=== PATIENT | female | born 1930 | race Caucasian/White ===

== ENCOUNTER → 2018-02-20 11:29 | Outpatient (CLI) | payer MEDICARE, BC ==
--- NOTE | ~2018-02-20 | ST ---
PATIENT:PURNIMA DOWD MEDICAL RECORD: [id number] SEX: F LOCATION:[facility] ORDER #: ADMISSION DATE: 02/20/18 AGE OF PATIENT: 87 REFERRING PHYSICIAN: INTERPRETING PHYSICIAN: LUDWIG MILIAN MD DATE OF SERVICE: 02/20/2018 PROCEDURE: Nuclear stress test. INDICATION: Chest pain, shortness of breath, hypertension. The patient was exercised on standard Lexiscan protocol with 32 mCi of sestamibi injected at peak stress, 11 mCi were injected previously for rest images. FINDINGS: Gated SPECT reveals preserved ejection fraction at 85% with good wall motion and thickening and brightening throughout all segments. SPECT imaging Cardiolite was used as myocardial fusion agent. There is homogeneous uptake throughout all segments at rest and stress with no evidence of inducible ischemia or previous infarction. OVERALL IMPRESSION: 1. This is a normal nuclear stress test with no evidence of inducible ischemia or previous infarction. 2. Gated SPECT reveals a preserved ejection fraction at 85%. In this patient with ongoing symptomatology, the current scan does not suggest the presence of hemodynamically significant coronary artery disease. Evaluate noncardiac etiology of chest pain. TRANSINT:[id number] Voice Confirmation ID: [id number] DOCUMENT ID: [id number] LUDWIG MILIAN MD at 1228 CC: ABHIJEET HEMPHILL MD [id number] DICTATION DATE: 02/21/18 1238 INSPECTING SUPERVISOR: 02/22/18 0654 [facility] CLI 02/20/18 [place] [id number] [place] [id number]
== END | disposition home or self-care (01) ==
LOC: D.HCCARDIO 11:29
DX: R06.02 Shortness of breath (principal)

== ENCOUNTER 2018-04-30 08:43 | Outpatient (CLI) | payer MEDICARE, BC ==
[~2018-04-30] VITALS: Ht 154.9 cm; Wt 48.2 kg
--- NOTE | ~2018-04-30 | HEMODYNAMI ---
PATIENT:PURNIMA DOWD MEDICAL RECORD: [id number] : 34 LOCATION:[facility] ADMISSION DATE: 04/30/18 Generatedon:04/30/201810:48 Patient name: PURNIMA DOWD Patient #: [id number] SSN: : [id number] Date of study: 04/30/2018 Page: Of Hemodynamic Procedure Report Patient Data Patient Demographics Procedure consent was obtained First Name: PURNIMA Gender: Female Last Name: NILE : 1930 [facility] Initial: ZHANNA Age: 87 year(s) Patient #: [id number] Race: Unknown Additional ID: [id number] Contact details [address]: [address] [place] [address] State: [place] City: [place] Zip code: [address] Past Medical History Allergies Allergen Reaction Date Comments Reported Penicillins 04/30/2018 Other allergy 04/30/2018 PEPCID,PHENERGAN, BENICAR, ANZEMET, LISINOPRIL Admission Admission Data Admission Date: 04/30/2018 Admission Time: 8:43 Procedure Procedure Types Cath Procedure Diagnostic Procedure C [facility] w/Coronaries Procedure Description Procedure Date Procedure Date: 04/30/2018 Procedure Start Time: 10:38 Procedure End Time: 10:46 Procedure Staff Name Function Gordon Andre MD Performing Physician Taisha Cardenas RT Monitor Josué Pitts RT Ui Lead Developer Roya Yen RT Scrub Sonia Thurston RT Scrub Procedure Data Cath Procedure Fluoroscopy Diagnostic fluoroscopy Total fluoroscopy Time: 1.1 time: 1.1 min min Diagnostic fluoroscopy Total fluoroscopy dose: 144 dose: 144 mGy mGy Contrast Material Contrast Material Type Amount (ml) Isovue 300 56 Entry Location Entry Primary Successful Side Size Upsize Upsize Entry Closure Regalado ccessful Closure Location (Fr) 1 (Fr) 2 (Fr) Remarks Device Remarks Radial Right 6 Fr Mechanical artery Short Compression Estimated blood loss: 5 ml Diagnostic catheters Device Type Used For End Catheter Placement DIAGNOSTIC [place] 110cm 5 LV Angiography Fr catheter ([id number]) DIAGNOSTIC [place] 110cm 5 Left Coronary Fr catheter ([id number]) Angiography DIAGNOSTIC [place] 110cm 5 Right Coronary Fr catheter (170116) Angiography Procedure Complications No complications Procedure Medications Medication Administration Route Dosage Oxygen etCO2 Nasal cannula 2 l/min Heparin Flush Bag added to field 2 bags (1000units/500ml NS) 0.9% NaCl I.V. 100 ml/hr Lidocaine 2% added to field 20 Radial Cocktail added to field 1 syringe (Verapomil 2mg/Nitro 400mcg/Heparin 1500units) Fentanyl I.V. 50 mcg Versed I.V. 1 mg Radial Cocktail I.A. 1 syringe (Verapomil 2mg/Nitro 400mcg/Heparin 1500units) Fentanyl I.V. 50 mcg Versed I.V. 1 mg Hemodynamics Rest Heart Rate: 63 (bpm) Snapshots Pre Cath Intra NCS Post Cath Vital Signs Time Heart Resp SPO2 etCO2 NIBP (mmHg) Rhythm Pain Sedation Rate (ipm) (%) (mmHg) Status Level (bpm) 10:28:55 67 17 98 33.3 160/65(101) NSR 0 (11) 10(A) , No pain 10:33:19 61 17 100 30.3 143/55(86) NSR 0 (11) 10(A) , No pain 10:38:41 55 17 100 0 120/45(93) NSR 0 (11) 9(A) , No pain 10:42:57 58 17 95 0 96/37(68) NSR 0 (11) 9(A) , No pain 10:46:19 59 17 92 0 99/36(72) NSR 0 (11) 9(A) , No pain Medications Time Medication Route Dose Verified Delivered Reason Notes Effectiveness by by 10:32:19 Oxygen etCO2 2 l/min Gordon Jones Per Nasal Thai Cordero RN physician cannula 10:32:28 Heparin Flush added 2 bags Gordon Jones used for Bag to Thai Cordero RN procedure (1000units/500ml field NS) 10:32:36 0.9% NaCl I.V. 100 Gordon Robert Per ml/hr Thai Cordero RN physician 10:32:44 Lidocaine 2% added 20ml Gordon Jones used for to vial Thai Cordero mine surveyor field 10:32:52 Radial Cocktail added 1 Gordon Jones used for (Verapomil to syringe Thai Cordero RN procedure 2mg/Nitro field 400mcg/Heparin 1500units) 10:35:03 Fentanyl I.V. 50 mcg Gordon Jones for sedation Thai Cordero RN 10:35:10 Versed I.V. 1 mg Gordon Jones for sedation Thai Cordero RN 10:39:30 Radial Cocktail I.A. 1 Gordon Leyva for (Verapomil syringe Thai Andre MD vasodilation 2mg/Nitro 400mcg/Heparin 1500units) 10:40:24 Fentanyl I.V. 50 mcg Gordon Leyva for sedation Thai Andre MD 10:40:29 Versed I.V. 1 mg Gordon Leyva for sedation Thai Andre MD Procedure Log Time Note 10:07:46 Josué Pitts RT(R) sent for patient. Start room use. 10:17:14 Time tracking: Regular hours (M-F 7:00 - 5:00) 10:17:16 Plan of Care:Hemodynamics will remain stable., Cardiac rhythm will remain stable., Comfort level will be maintained.. 10:21:21 Patient received from Pre/Post Procedure Room to CCL 1 Alert and oriented. Tansferred to table in Supine position. 10:21:23 Warm blankets applied, and kacy hugger turned on for patient comfort. 10:21:24 Correct patient and procedure confirmed by team. 10:21:25 Signed procedure consent form obtained from patient. 10:21:26 ECG and BP/O2 sat monitors applied to patient. 10:21:27 Full Disclosure recording started 10:27:41 Vital chart was started 10:29:21 Rhythm: sinus rhythm 10:29:28 Baseline sample Acquired. 10:29:41 H&P Date Dictated: 04/12/2018 Within 30 days and on chart., H&P Addendum completed by physician on day of procedure. (MUST COMPLETE FOR ALL OUTPATIENTS). 10:29:42 Pre-procedure instructions explained to patient. 10:29:43 Pre-op teaching completed and patient verbalized understanding. 10:29:44 Family in patients room. 10:29:47 Patient NPO since Midnight. 10:30:02 Patient allergic to Penicillins 10:30:43 Patient allergic to Other allergyPEPCID,PHENERGAN, BENICAR, ANZEMET, LISINOPRIL 10:30:48 Is the patient allergic to Iodine/contrast media? No. 10:30:50 Is patient on blood thinner?No 10:30:52 Patient diabetic? No. 10:30:56 Previous problem with sedation/anesthesia? No ? 10:30:58 Snore? No 10:30:59 Sleep apnea? No 10:31:00 Deviated septum? No 10:31:01 Opens mouth fully? Yes 10:31:02 Sticks out tongue? Yes 10:31:04 Airway obstruction? No ? 10:31:07 Dentures? No ? 10:31:11 Pre procedure: right dorsailis pedis pulse 2+ Normal; easily identifiable; not easily obliterated 10:31:13 Modified Dany's test Ulnar < 7 seconds 10:31:14 Patient pain scale 0/10 ?. 10:31:22 IV patent on arrival in left forearm with 0.9% NaCl at [facility]. 10:31:25 Lab results completed and on chart. 10:31:30 Right Radial & Right Groin area was prepped with chlora-prep and draped in sterile fashion 10:31:32 Alarms reviewed by R. N. 10:31:32 Sharps counted by scrub and verified by R.N. 10:32:19 Oxygen 2 l/min etCO2 Nasal cannula was administered by Robert Cordero RN; Per physician; 10:32:28 Heparin Flush Bag (1000units/500ml NS) 2 bags added to field was administered by Robert Cordero RN; used for procedure; 10:32:36 0.9% NaCl 100 ml/hr I.V. was administered by Robert Cordero RN; Per physician; 10:32:44 Lidocaine 2% 20ml vial added to field was administered by Robert Cordero RN; used for procedure; 10:32:52 Radial Cocktail (Verapomil 2mg/Nitro 400mcg/Heparin 1500units) 1 syringe added to field was administered by Robert Cordero RN; used for procedure; 10:34:25 Final Timeout: patient, procedure, and site verified with staff and physician. All members of the team are in agreement. 10:34:27 Right Radial site verified by team. 10:34:37 Fire Safety Assessment: A--An alcohol-based skin anteseptic being used preoperatively., C--Open oxygen or nitrous oxide is being used., D--An ESU, laser, or fiber-optic light is being used. 10:34:40 Physical assessment completed. ASA score P 2 - A patient with mild systemic disease as per Gordon Andre MD. 10:34:43 Sedation plan: IV Moderate Sedation Medication:Versed, Fentanyl 10:35:03 Fentanyl 50 mcg I.V. was administered by Robert Cordero RN; for sedation; 10:35:10 Versed 1 mg I.V. was administered by Robert Cordero RN; for sedation; 10:37:10 Zero performed for pressure channel P1 10:37:20 Use device set Radial Dx or PCI 10:37:21 ACIST Syringe (94943) opened to sterile field. 10:37:22 Medline Cath Pack ([id number]) opened to sterile field. 10:37:22 Bag Decanter (2002S) opened to sterile field. 10:37:23 DIAGNOSTIC WIRE .035 260cm J wire (915074) opened to sterile field. 10:37:23 ACIST Hand Control (96425) opened to sterile field. 10:37:23 ACIST Manifold (54532) opened to sterile field. 10:37:24 Tegaderm 4 x 4 (1626W) opened to sterile field. 10:37:24 MBrace Wrist Support ([id number]) opened to sterile field. 10:37:25 SHEATH 6FR Slender (45-9540) opened to sterile field. 10:38:31 Procedure started. 10:38:38 Local anesthetic to right radial artery with Lidocaine 2% by Gordon Andre MD.INITIAL ACCESS ONLY 10:39:12 A 6 Fr Short sheath was inserted into the Right Radial artery 10:39:30 Radial Cocktail (Verapomil 2mg/Nitro 400mcg/Heparin 1500units) 1 syringe I.A. was administered by Gordon Andre MD; for vasodilation; 10:40:01 A DIAGNOSTIC [place] 110cm 5 Fr catheter (248614) was advanced over the wire and used for LV Angiography. 10:40:24 Fentanyl 50 mcg I.V. was administered by Gordon Andre MD; for sedation; 10:40:29 Versed 1 mg I.V. was administered by Gordon Andre MD; for sedation; 10:41:23 LV gram done using TREVINO 10:41:28 EF : 60 % 10::31 Injector settings: Ml/sec: 7, Volume: 15, 10:42:18 A DIAGNOSTIC [place] 110cm 5 Fr catheter (058909) was advanced over the wire and used for Left Coronary Angiography. 10:42:48 A DIAGNOSTIC [place] 110cm 5 Fr catheter (822847) was advanced over the wire and used for Right Coronary Angiography. 10:42:52 TR BAND Standard ([id number]) opened to sterile field. 10:42:54 Catheter removed. 10:43:02 Sheath removed intact; hemostasis achieved with Mechanical Compression to the Right Radial artery. 10:43:04 Procedure ended.(Physican Out) 10:43:39 Fluoroscopy time 01.10 minutes. 10:43:42 Fluoroscopy dose: 144 mGy 10:43:42 Flurop Dose total: 144 10:43:46 Contrast amount:Isovue 300 56ml. 10:43:48 Sharps counted by scrub and verified by R.N. 10:43:51 TR band inflated with 12cc of air. 10:43:52 Insertion/operative site no bleeding no hematoma. 10:43:57 Post right radial artery:stable, clean and dry 10:43:58 Post Procedure Pulses reassessed and unchanged 10:44:00 Post-procedure physical assessment completed. ASA score P 2 - A patient with mild systemic disease as per Gordon Andre MD. 10:44:02 Post procedure rhythm: unchanged. 10:44:05 Estimated blood loss: 5 ml 10:44:07 Post procedure instruction explained to patient.Patient verbalizes understanding. 10:44:07 Patient needs reinforcement of post procedure teaching. 10:44:11 Procedure Complication : No complications 10:44:31 See physician's report for complete and final results. 10:44:48 Procedure and supply charges have been captured, reviewed, submitted and are correct. 10:46:36 Vital chart was stopped 10:46:38 Report given to Pre/Post Procedure Room. 10:46:40 Patient transfered to Pre/Post Procedure Room with Stretcher. 10:46:43 Procedure ended. 10:46:43 Full Disclosure recording stopped 10:46:49 End room use (Document Last) Device Usage Item Name Manufacture Quantity Catalog Hospital Part Current Minimal Lot# / Number Charge Number Stock Stock Serial# Code ACIST Acist 1 18636 885868 [id number] 491478 20 Syringe Medical (23182) Systems Inc Medline Medline 1 [id number] 326697 05746 540776 5 Cath Pack ([id number]) Bag Microtek 1 2002S 913373 19695 857046 5 Decanter Medical Inc. (2001S) DIAGNOSTIC [facility] [place] 1 524536 794860 645113 720684 30 WIRE .035 260cm J wire (441562) ACIST Hand Acist 1 94750 918430 888366 163084 5 Control Medical (31001) Systems Inc ACIST Acist 1 09832 443963 150666 160332 5 Manifold Medical (72491) Systems Inc Tegaderm 4 3M 1 1626W 701903 499780 179539 5 x 4 (1626W) MBrace Advanced 1 140-0250-00 107481 76512 373071 5 Wrist Vascular Support Dynamics ([id number]) SHEATH 6FR Terumo 1 [id number] 378620 876036 105336 5 Slender (80-1060) DIAGNOSTIC Terumo 1 40-5313 330771 271567 184479 5 [place] 110cm 5 Fr catheter (261006) TR BAND Terumo 1 [id number] 537701 834079 865691 40 Standard ([id number]) Signature Audit [place] Stage Time Signature Unsigned Intra-Procedure 04/30/2018 Taisha 10:47:58 AM Counts RT(R) Signatures Monitor : Taisha Signature : Counts RT Date : Time : [place] [address] [place] [address]
[2018-04-30] MEDS ORDERED: PREMARIN0.625 MG PO (09:11)
[2018-04-30] MEDS ORDERED: BAYER CHEWABLE81 MG PO (09:11)
[2018-04-30] MEDS ORDERED: TOPROL XL50 MG PO (09:11)
[2018-04-30] MEDS ORDERED: SYNTHROID50 MCG PO (09:11)
[2018-04-30] MEDS ORDERED: VITAMIN D250000 UNIT PO (09:12)
[2018-04-30 09:22] VITALS: BP 159/60; Ht 154.9 cm; Wt 48.2 kg
[2018-04-30 09:31] LABS: BASOPHILS 0.1 % (0-2); EOSINOPHILS 0.6 % (0-7); HEMATOCRIT 37.4 % (36.0-48.0); HEMOGLOBIN 12.2 g/dL (12-16); IMMATURE GRANULOCYTES 0.1 % (0-5); LYMPHOCYTES 42.8 % (15-50); MCH 31.6 pg (26.0-34.0); MCHC 32.6 g/dL (31.0-37.0); MCV 96.9 fL (80.0-100.0); MEAN PLATELET VOLUME 11.2 fL (7.4-10.4); MONOCYTES 4.5 % (2-11); NEUTROPHILS 51.9 % (40-80); PLATELET COUNT 207 10x3/uL (130-400); RBC 3.86 10x6/uL (4.00-5.40); RDW 12.3 % (11.5-14.5)
[2018-04-30 09:44] LABS: ANION GAP 17.5 mmol/L (8-16); CALCIUM 8.3 mg/dL (8.5-10.1); CARBON DIOXIDE 25.5 mmol/L (21.0-32.0); CREATININE - SERUM 1.4 mg/dL (0.6-1.3)
--- NOTE | 2018-04-30 11:46 | OP ---
PATIENT NAME: PURNIMA DOWD MEDICAL RECORD: [id number] :34 LOCATION:D.CAT ADMISSION DATE: SURGEON: LUDWIG MILIAN MD DATE OF OPERATION: 04/30/2018 PROCEDURES: 1. Left heart catheterization. 2. Selective coronary angiography. 3. Left ventriculogram. INDICATION: Angina and coronary artery disease. DESCRIPTION OF PROCEDURE: After informed consent was obtained with detailed description of risks and benefits as well as alternative therapies, the patient elected to proceed with angiogram and heart catheterization. The right radial area was prepped and draped in normal sterile fashion. Right radial artery was cannulated via modified Seldinger technique with placement of 5-Armenian sheath. All catheters were exchanged through this sheath. FINDINGS: Left ventriculogram performed in standard 30-degree TREVINO view reveals good cardiac wall motion throughout all segments. Overall ejection fraction estimated at 70%. SELECTIVE CORONARY ANGIOGRAPHY: 1. Left main is with no significant angiographic disease. 2. Left anterior descending has moderate irregularities, but no flow-limiting stenosis. 3. Left circumflex has moderate irregularities, but no flow-limiting stenosis. 4. Right coronary has moderate irregularities, but no flow-limiting stenosis. OVERALL IMPRESSION: No significant coronary artery disease is present. Chest pain is noncardiac in etiology. No other cardiac workup needs to be ascertained. TRANSINT:[id number] Voice Confirmation ID: [id number] DOCUMENT ID: [id number] LUDWIG MILIAN MD at 1146 CC: [id number] DICTATION DATE: 04/30/18 1046 DIVIDER OPERATOR: 04/30/18 1101 [address] [place] [id number] [place] [address]
--- NOTE | 2018-04-30 11:50 | NUR ---
1115 PT IS ALERT, DENIES ANY C/O PAIN OR NAUSEA. REQUESTS APPLE JUICE AND THIS IS SERVED. TR BAND IS CDI, FINGERS WARM AND CAP REFILL IS BRISK. PULSES PALPABLE. IV PATENT AND INFUSING PER ORDERS. VSS, CALL LIGHT IN REACH.
--- NOTE | 2018-04-30 11:52 | NUR ---
1140 PT EVANS APPLE JUICE WITH NO C/O NAUSEA. OFFERED SANDWICH AND PT DECLINES, STATING ONLY WANTS APPLE JUICE AT THIS TIME. TR BAND IS CDI, FINGERS WARM AND CAP REFILL IS BRISK. SINUS AMOR AT 55, PT DENIES ANY C/O CHEST DISCOMFORT. NO FAMILY AT BEDSIDE, CALL LIGHT IS IN REACH.
--- NOTE | 2018-04-30 12:11 | NUR ---
3 CC OF AIR WEANED FROM TR BAND WITH NO BLEEDING NOTED. FINGERS WARM AND CAP REFILL IS BRISK. PT DENIES ANY C/O. SINUS AMOR, RATE 52, BP IS 133/46. CALL LIGHT IN REACH.
--- NOTE | 2018-04-30 12:27 | NUR ---
3 CC OF AIR WEANED FROM TR BAND WITH NO BLEEING NOTED. FINGERS WARM AND CAP REFILL IS BRISK.
--- NOTE | 2018-04-30 13:07 | NUR ---
1235 ALL REMAINING AIR WEANED FROM TR BAND WITH NO BLEEDING NOTED. FINGERS WARM AND PULSES PALPABLE. DC INSTRUCTIONS REVIEWED WITH PT WHO VERBALIZES UNDERSTANDING. 1245 2X2 AND TEGADERM PLACED TO CATH SITE. WRIST IMMOBILIZER IN PLACE. ASSISTING PT WITH DRESSING FOR DC TO HOME. 1300 PT IS DRESSED FOR DC. DRESSING REMAINS CDI TO RIGHT WRIST, WRIST IMMOBILIZER IN PLACE. FINGERS WARM AND PULSES PALPABLE. PT DENIES ANY NV DEFICIT TO HAND. PT ESCORTED TO PRIVATE [facility] [facility]IA [employer] N[facility]SE WITH FRIEND DRIVING HER HOME. PT HAS DC INSTRUCTIONS AND ALL PERSONAL BELONGINGS AT TIME OF DC TO HOME.
== END 2018-04-30 13:00 | disposition home or self-care (01) ==
LOC: D.CATH 08:43
PROVIDERS: Internal Medicine Interventional Cardiology
DX: I25.119 Atherosclerotic heart disease of native coronary artery with unspecified angina pectoris (principal); Z01.812 Encounter for preprocedural laboratory examination; I10 Essential (primary) hypertension; R06.00 Dyspnea, unspecified; I34.0 Nonrheumatic mitral (valve) insufficiency

== ENCOUNTER 2018-09-26 13:58 | Inpatient (IN) | payer MEDICARE, BC ==
[2018-09-26] VITALS (10 sets, daily range): BP systolic 113–201; BP diastolic 50–91; BMI 20.8
[~2018-09-26] VITALS: Ht 154.9 cm; Wt 50.0 kg
[~2018-09-26 13:58] MED LIST: BAYER CHEWABLE81 MG PO; PREMARIN0.625 MG PO; SYNTHROID50 MCG PO; TOPROL XL50 MG PO; VITAMIN D250000 UNIT PO
[2018-09-26 14:51] LABS: APTT 23.8 SECONDS (22.8-39.4)
[2018-09-26 14:52] LABS: INR 1.03 (0.85-1.17)
[2018-09-26 14:57] LABS: ALBUMIN 3.8 g/dL (3.4-5.0); ALKALINE PHOSPHATASE 76 U/L (46-116); ALT (SGPT) 20 U/L (10-68); BILIRUBIN - TOTAL 0.49 mg/dL (0.2-1.3); CALC OSMOLALITY 286 mosm/kg (275-300); CALCIUM 8.2 mg/dL (8.5-10.1); CARBON DIOXIDE 28.2 mmol/L (21.0-32.0); CHLORIDE - SERUM 107 mmol/L (98-107); CREATININE - SERUM 0.9 mg/dL (0.6-1.3); GLUCOSE 93 mg/dL (74-106); POTASSIUM - SERUM 4.4 mmol/L (3.5-5.1); PROTEIN - SERUM 7.1 g/dL (6.4-8.2); SODIUM 143 mmol/L (136-145); UREA NITROGEN 18 mg/dL (7-18); eGFR NON AFRICAN AMERICAN 63 mL/min (90-120)
[2018-09-26 15:07] LABS: BASOPHILS 0.1 % (0-2); EOSINOPHILS 0.4 % (0-7); HEMOGLOBIN 12.9 g/dL (12-16); IMMATURE GRANULOCYTES 0.1 % (0-5); LYMPHOCYTES 32.6 % (15-50); MCH 30.6 pg (26.0-34.0); MCHC 33.1 g/dL (31.0-37.0); MCV 92.6 fL (80.0-100.0); MEAN PLATELET VOLUME 11.5 fL (7.4-10.4); MONOCYTES 3.7 % (2-11); NEUTROPHILS 63.1 % (40-80); PLATELET COUNT 170 10x3/uL (130-400); RBC 4.21 10x6/uL (4.00-5.40); RDW 13.1 % (11.5-14.5); WBC 7.9 10x3/uL (4.8-10.8)
[2018-09-26 15:12] LABS: CKMB 0.8 U/L (0.0-3.6); CREATINE KINASE 73 UL (21-215); TROPONIN-I < 0.017 ng/mL (0.000-0.060)
[2018-09-27] VITALS: BP 110/45
[2018-09-27 04:00] VITALS: BP 112/58
[2018-09-27 06:03] LABS: BASOPHILS 0.2 % (0-2); EOSINOPHILS 1.1 % (0-7); HEMATOCRIT 36.3 % (36.0-48.0); LYMPHOCYTES 45.5 % (15-50); MCH 30.7 pg (26.0-34.0); MCHC 33.1 g/dL (31.0-37.0); MCV 92.8 fL (80.0-100.0); MEAN PLATELET VOLUME 11.2 fL (7.4-10.4); MONOCYTES 7.3 % (2-11); NEUTROPHILS 45.9 % (40-80); PLATELET COUNT 170 10x3/uL (130-400); RBC 3.91 10x6/uL (4.00-5.40); RDW 13.3 % (11.5-14.5)
[2018-09-27 06:06] LABS: WBC 5.7 10x3/uL (4.8-10.8)
[2018-09-27 06:22] LABS: ALBUMIN 3.5 g/dL (3.4-5.0); ANION GAP 11.5 mmol/L (8-16); BILIRUBIN - TOTAL 0.44 mg/dL (0.2-1.3); CALCIUM 7.9 mg/dL (8.5-10.1); CARBON DIOXIDE 27.3 mmol/L (21.0-32.0); POTASSIUM - SERUM 3.8 mmol/L (3.5-5.1); PROTEIN - SERUM 6.6 g/dL (6.4-8.2)
[2018-09-27 06:39] LABS: CREATININE - SERUM 1.2 mg/dL (0.6-1.3)
[2018-09-27 08:49] VITALS: BP 128/49
[2018-09-27 09:53] VITALS: Ht 154.9 cm; Wt 50.0 kg
--- NOTE | 2018-09-27 10:57 | NUR ---
ALERT AND ORIENTED. DENIES ANY NEEDS. TELEMERTY SHOWS SR 75. SL TO RIGHT WRIST. DENIES ANY BLURRED VISION TODAY. SR UP WITH CALL LIGHT IN REACH. WILL MONITOR
[2018-09-27 12:25] VITALS: BP 119/54
--- NOTE | 2018-09-27 12:47 | NUR ---
I have reviewed this patient and I concur with the Shift Assessment completed by the Licensed Practical Nurse today this shift.
[2018-09-27 16:39] VITALS: BP 122/59
--- NOTE | 2018-09-27 19:28 | NUR ---
EVENING ROUNDS MADE. PT SITTING UP IN BED RESTING. DENIES PAIN AT THIS TIME. A/O X 4. BREATHING EVEN AND UNLABORED. ROOM AIR. INFORMED PT THAT WE NEEDED TO COLLECT URINE. PT AGREED WITH POC. NO FURTHER CONCERNS AT THIS TIME. BED LOWERED AND LOCKED. CL IN REACH. WILL CTM.
[2018-09-27 20:00] VITALS: BP 130/57
[2018-09-28] VITALS: BP 130/50
[2018-09-28 04:00] VITALS: BP 129/47
[2018-09-28 05:31] LABS: BASOPHILS 0.4 % (0-2); EOSINOPHILS 2.3 % (0-7); HEMATOCRIT 35.1 % (36.0-48.0); HEMOGLOBIN 11.5 g/dL (12-16); LYMPHOCYTES 53.9 % (15-50); MCH 30.8 pg (26.0-34.0); MCHC 32.8 g/dL (31.0-37.0); MCV 94.1 fL (80.0-100.0); MEAN PLATELET VOLUME 11.6 fL (7.4-10.4); MONOCYTES 7.2 % (2-11); NEUTROPHILS 36.2 % (40-80); PLATELET COUNT 164 10x3/uL (130-400); RBC 3.73 10x6/uL (4.00-5.40); RDW 13.6 % (11.5-14.5); WBC 5.6 10x3/uL (4.8-10.8)
--- NOTE | 2018-09-28 05:44 | NUR ---
I have reviewed this patient and I concur with the Shift Assessment completed by the Licensed Practical Nurse today this shift.
[2018-09-28 05:45] LABS: ANION GAP 11.3 mmol/L (8-16); CALCIUM 7.9 mg/dL (8.5-10.1); CREATININE - SERUM 1.1 mg/dL (0.6-1.3); POTASSIUM - SERUM 4.3 mmol/L (3.5-5.1)
--- NOTE | 2018-09-28 07:30 | NUR ---
ASSESSMENT COMPLETED. DENIES ANY NEEDS. TELEMERTY SHOWS SR. RIGHT WRIST SL. UP AB ÁLVARO. WILL MONITOR
[2018-09-28 08:30] VITALS: BP 176/58
--- NOTE | 2018-09-28 13:53 | NUR ---
I have reviewed this patient and I concur with the Shift Assessment completed by the Licensed Practical Nurse today this shift.
--- NOTE | 2018-10-01 09:18 | MORECARE ---
CASE MANAGEMENT DISCHARGE SUMMARY PATIENT: PURNIMA DOWD UNIT: [id number] ADM DATE: 09/26/18 AGE: 87 : 32 SEX: F ROOM/BED: D.2124 AUTHOR: CHARITY HAMMONDS PHYSICIAN: REFERRING PHYSICIAN: KRYSTEN FRANCO MD DATE OF SERVICE: 10/01/18 Discharge Plan Patient Name: PURNIMA DOWD Facility: [facility]:[place] : 1930 Planned Disposition: Home Anticipated Discharge Date: 09/28/18 Discharge Date: 09/28/2018 Expected LOS: 2 Initial Reviewer: [email or web address] Initial Review Date: 10/01/2018 Generated: 10/01/18 10:18 am Patient Name: PURNIMA DOWD Page [id number] at 0918 All edits/amendments must be made on the electronic document DICTATION DATE: 10/01/18917 SPOOL TENDER: CHUCKIE 10/01/18917 RPT#: [id number] DC DATE:09/28/18 STATUS: DIS IN [facility] [address] [place] [address] END OF REPORT
== END 2018-09-28 14:48 | disposition home or self-care (01) | DRG 305 ==
LOC: D.ER 13:58 → D.M2 17:57
PROVIDERS: Family Medicine; ADMIT Internal Medicine Nephrology; ATTEND Internal Medicine Nephrology
DX: I16.0 Hypertensive urgency (principal); N17.9 Acute kidney failure, unspecified; E03.9 Hypothyroidism, unspecified; D64.9 Anemia, unspecified